=== PATIENT | female | born 1955 | race Two or more races ===

== ENCOUNTER 2023-08-04 00:51 | Emergency (ER) | payer MEDICAID ==
[~2023-08-04] VITALS: Ht 170.2 cm; Wt 67.0 kg
[2023-08-04 01:19] VITALS: TEMP 98.5; O2SAT 99
[2023-08-04 02:10] VITALS: BP 127/77; PULSE 65; RESP 16
[2023-08-04] MEDS: KETOROLAC 30MG/ML VIAL IV STA (02:10)
[2023-08-04] MEDS ORDERED: MECLIZINE 25MG TABLET PO ONE (03:00)
[2023-08-04] MEDS ORDERED: METOCLOPRAMIDE HCL 10MG/2ML VIAL IV ONE (03:00)
[2023-08-04 03:14] LABS: BASOPHILS % 0.7 % (0.0-2.0); EOSINOPHILS % 2.4 % (0.0-5.0); HEMATOCRIT. 37.9 % (36.0-48.0); HEMOGLOBIN. 12.8 g/dL (12.0-16.0); MEAN CORPUSCULAR HEMOGLOBIN 31.3 pg (28.0-32.0); MEAN CORPUSCULAR HGB CONC 33.7 g/dL (31.0-37.0); MEAN CORPUSCULAR VOLUME 92.9 fL (81.0-99.0); MEAN PLATELET VOLUME 8.5 fl (7.4-10.4); MONOCYTES % 9.2 % (2.0-8.0); NEUTROPHILS % 52.7 % (40.0-76.0); PLATELET 263 x1000/uL (130-400); RED BLOOD CELL COUNT 4.08 mill/uL (4.2-5.4); RED CELL DISTRIBUTION WIDTH 13.7 % (11.6-14.6); WHITE BLOOD COUNT 6.3 x1000/uL (4.5-11.0)
[2023-08-04] MEDS: MECLIZINE 12.5MG TABLET PO NR (03:15)
[2023-08-04 03:21] LABS: CHLORIDE 106 mEq/L (98-107); POTASSIUM 3.6 mEq/L (3.5-5.1); SODIUM 139 mEq/L (136-145)
[2023-08-04 03:22] LABS: CALCIUM 9.1 mg/dL (8.7-10.4); CARBON DIOXIDE 27 mEq/L (21-32)
[2023-08-04 03:27] LABS: CREATININE 0.6 mg/dL (0.6-1.0); GLUCOSE 100 mg/dL (70-105); UREA NITROGEN BLOOD 18 mg/dL (9-23)
[2023-08-04 03:29] LABS: ALANINE AMINOTRANSFERASE < 7 IU/L (10-49); ALBUMIN 4.2 g/dL (3.2-4.8); ASPARTATE AMINOTRANSFERASE 16 IU/L (<34)
[2023-08-04 03:30] LABS: BILIRUBIN TOTAL 0.3 mg/dL (0.1-1.0); PROTEIN TOTAL 7.3 g/dL (6.0-8.3)
[2023-08-04 03:55] LABS: BILIRUBIN DIRECT < 0.1 mg/dL (<=3.0)
[2023-08-04] MEDS: ACETAMINOPHEN 1000MG/100ML 100 ML IV ONE (03:57)
[2023-08-04] MEDS: METOCLOPRAMIDE HCL 10MG/2ML VIAL IV NR (03:57)
[2023-08-04 04:11] LABS: CLARITY URINE TURBID (CLEAR); COLOR URINE YELLOW (YELLOW); GLUCOSE URINE NEGATIVE (NEGATIVE); KETONES URINE NEGATIVE (NEGATIVE); LEUKOCYTE ESTERASE URINE 3+ (NEGATIVE); NITRITE URINE NEGATIVE (NEGATIVE); OCCULT BLOOD URINE 1+ (NEGATIVE); PH URINE 5.5 (4.5-8.0); PROTEIN URINE NEGATIVE (NEGATIVE); SPECIFIC GRAVITY URINE 1.025 (1.005-1.030); UROBILINOGEN URINE 0.2 E.U./dL (0.2-1.0)
[2023-08-04 04:37] LABS: BACTERIA URINE TRACE; RBC URINE 0-2 /hpf (0-2); SQUAMOUS EPITHELIAL CELL URINE 2+ /lpf (RARE/1+)
[2023-08-04 04:38] LABS: URIC ACID CRYSTALS URINE 3+ /lpf
[2023-08-04] MEDS ORDERED: IOHEXOL-350 100 ML BOTTLE ONE (07:01)
== END 2023-08-04 06:15 | disposition left against medical advice (07) ==
LOC: ER 00:51
DX: R51.9 Headache, unspecified (principal); R42 Dizziness and giddiness
CPT/HCPCS: 80076; 80048; 81003; 85025; 36415; 70496; 70498; 96365; 96375; 99285; Q9967; J8597; J1885; J2765; Z7610 ×2; J0131

== ENCOUNTER 2024-05-18 09:52 | Emergency (ER) | payer MEDICAID ==
[~2024-05-18] VITALS: Ht 167.6 cm; Wt 90.7 kg
[2024-05-18 09:58] VITALS: O2SAT 99
[2024-05-18] MEDS: FAMOTIDINE 20MG TABLET PO ONE (11:35)
[2024-05-18] MEDS: VISCOUS LIDOCAINE 2% 15 ML UDC PO STA (11:36)
[2024-05-18] MEDS: MAGNESIUM/ALUMINUM HYDROXIDE/SIMETHICONE 30ML UDC PO STA (11:36)
[2024-05-18 11:52] LABS: BASOPHILS % 0.6 % (0.0-2.0); CARBON DIOXIDE 27 mEq/L (21-32); CHLORIDE 107 mEq/L (98-107); EOSINOPHILS % 1.2 % (0.0-5.0); HEMATOCRIT. 42.1 % (36.0-48.0); HEMOGLOBIN. 13.3 g/dL (12.0-16.0); LYMPHOCYTES % 22.7 % (20.0-50.0); MEAN CORPUSCULAR HEMOGLOBIN 29.5 pg (28.0-32.0); MEAN CORPUSCULAR HGB CONC 31.6 g/dL (31.0-37.0); MEAN CORPUSCULAR VOLUME 93.5 fL (81.0-99.0); MEAN PLATELET VOLUME 8.5 fl (7.4-10.4); MONOCYTES % 8.4 % (2.0-8.0); NEUTROPHILS % 67.1 % (40.0-76.0); PLATELET 294 x1000/uL (130-400); POTASSIUM 4.1 mEq/L (3.5-5.1); RED BLOOD CELL COUNT 4.51 mill/uL (4.2-5.4); RED CELL DISTRIBUTION WIDTH 14.3 % (11.6-14.6); SODIUM 141 mEq/L (136-145)
[2024-05-18 11:53] LABS: CALCIUM 9.2 mg/dL (8.7-10.4)
[2024-05-18 11:54] LABS: CLARITY URINE CLOUDY (CLEAR); COLOR URINE YELLOW (YELLOW); GLUCOSE URINE NEGATIVE (NEGATIVE); KETONES URINE NEGATIVE (NEGATIVE); LEUKOCYTE ESTERASE URINE 3+ (NEGATIVE); NITRITE URINE POSITIVE (NEGATIVE); OCCULT BLOOD URINE 3+ (NEGATIVE); PROTEIN URINE NEGATIVE (NEGATIVE); SPECIFIC GRAVITY URINE 1.014 (1.005-1.030)
[2024-05-18 11:54] LABS: PROTHROMBIN TIME 10.5 sec (9.6-11.0)
[2024-05-18 11:57] LABS: CREATININE 0.6 mg/dL (0.6-1.0); GLUCOSE 83 mg/dL (70-105); UREA NITROGEN BLOOD 8 mg/dL (9-23)
[2024-05-18 11:59] LABS: ALANINE AMINOTRANSFERASE 9 IU/L (10-49); ALBUMIN 4.1 g/dL (3.2-4.8); ASPARTATE AMINOTRANSFERASE 15 IU/L (<34)
[2024-05-18 12:00] LABS: BILIRUBIN DIRECT < 0.1 mg/dL (<=3.0); BILIRUBIN TOTAL 0.4 mg/dL (0.1-1.0); PROTEIN TOTAL 7.6 g/dL (6.0-8.3); TROPONIN I HIGH SENSITIVITY < 4 ng/L (3.0-34)
[2024-05-18 12:39] LABS: SQUAMOUS EPITHELIAL CELL URINE RARE /lpf (RARE/1+)
[2024-05-18 12:40] LABS: BACTERIA URINE 4+; MUCUS URINE TRACE /lpf (< = 2+); WBC URINE 25-50 /hpf (0-2)
[2024-05-18] MEDS ORDERED: CEPH500C2 MT (13:46)
[2024-05-18 14:05] VITALS: BP 139/76; PULSE 85; RESP 18; TEMP 36.8; O2SAT 99
== END 2024-05-18 14:05 | disposition home or self-care (01) ==
LOC: ER 09:52
DX: N39.0 Urinary tract infection, site not specified (principal); N12 Tubulo-interstitial nephritis, not specified as acute or chronic
CPT/HCPCS: 36415; 71045; 74176; 80048; 80076; 81003; 84484; 85025; 87077; 87186; 93005; 99284; 99285